=== PATIENT | male | born 1990 | race Caucasian/White ===

== ENCOUNTER 2019-11-19 14:37 | Emergency (ER) | payer SELFPAY ==
--- NOTE | 2019-11-19 15:08 | ER Document Report ---
ED Medical Screen (RME) - General Stated Complaint: PSYCH EVAL Time Seen by Provider: 11/19/19 15:02 Primary Care Provider: EARLE RODRIGUEZ NP [Primary Care Provider] - Follow up as needed Mode of Arrival: Ambulatory Information source: Patient Notes: HPI; 29-year-old male who denies any previous mental health issues or medical problems presents to the emergency complaining of "panic attacks" for the past several weeks. Patient is not willing to elaborate as to what his panic attacks are like. He states he is having auditory hallucinations. States he has been self-medicating with alcohol to try to alleviate the panic attacks and the hallucinations. States he is having thoughts of suicide and plans on taking a gun to shoot himself. He has never tried to harm himself in the past. He denies any homicidal ideation. PE: He is alert and oriented x3. He has a flat affect. Cooperative. Lungs: Clear to auscultation without rales, rhonchi, wheezes. Heart: Tachycardic, without murmurs, rubs, gallops I have greeted and performed a rapid initial assessment of this patient. A comprehensive ED assessment and evaluation of the patient, analysis of test results and completion of the medical decision making process will be conducted by additional ED providers. I have specifically instructed the patient or family members with the patient to immediately return to any nursing staff should anything change in the patient's condition or with their chief complaint. TRAVEL OUTSIDE OF THE [place] IN LAST 30 DAYS: No - Related Data Allergies/Adverse Reactions: No Known Allergies Allergy (Verified 11/19/19 15:01) Past Medical History - Immunizations Hx Diphtheria, Pertussis, Tetanus Vaccination: No Physical Exam - Vital signs Vitals: Temp Pulse Resp BP Pulse Ox 98.7 F 97 20 154/95 H 99 11/19/19 14:56 11/19/19 14:56 11/19/19 14:56 11/19/19 14:56 11/19/19 14:56 Course - Vital Signs Vital signs: Temp Pulse Resp BP Pulse Ox 98.7 F 97 20 154/95 H 99 11/19/19 14:56 11/19/19 14:56 11/19/19 14:56 11/19/19 14:56 11/19/19 14:56 Doctor's Discharge - Discharge Referrals: EARLE RODRIGUEZ [facility]ION[facility] BABYS[facility] [Primary Care Provider] - Follow up as needed
[2019-11-19 16:00] LABS: ABSOLUTE LYMPHOCYTES (AUTO) 1.2 10^3/uL (0.5-4.7); ABSOLUTE MONOCYTES (AUTO) 0.4 10^3/uL (0.1-1.4); ABSOLUTE NEUT (AUTO) 1.4 10^3/uL (1.7-8.2); BASOPHILS % (AUTO) 1.1 % (0-2); EOSINOPHILS % (AUTO) 1.6 % (0-6); HEMATOCRIT 40.8 % (37.9-51.0); HEMOGLOBIN 14.4 g/dL (13.5-17.0); LYMPHOCYTES % (AUTO) 38.6 % (13-45); MEAN CORPUSCULAR HEMOGLOBIN 30.5 pg (27.0-33.4); MEAN CORPUSCULAR HGB CONC 35.2 g/dL (32.0-36.0); MEAN CORPUSCULAR VOLUME 87 fl (80-97); MONOCYTES % (AUTO) 12.4 % (3-13); PLATELET COUNT 207 10^3/uL (150-450); RED BLOOD COUNT 4.71 10^6/uL (4.35-5.55); RED CELL DISTRIBUTION WIDTH 12.1 % (11.5-14.0); SEGMENTED NEUTROPHILS % (AUTO) 46.3 % (42-78); TOTAL CELLS COUNTED % (AUTO) 100 %; WHITE BLOOD COUNT 3.1 10^3/uL (4.0-10.5)
[2019-11-19 16:22] LABS: ACETAMINOPHEN < 10 ug/mL (10-30); ALBUMIN 5.2 g/dL (3.5-5.0); ALCOHOL < 10 mg/dL (NONE DETECTED); ALKALINE PHOSPHATASE 118 U/L (38-126); ANION GAP 17 (5-19); ASPARTATE AMINO TRANSFERASE 37 U/L (17-59); BILIRUBIN,DIRECT 0.3 mg/dL (0.0-0.4); BILIRUBIN,TOTAL 0.8 mg/dL (0.2-1.3); BLOOD UREA NITROGEN 11 mg/dL (7-20); CALCIUM 10.1 mg/dL (8.4-10.2); CARBON DIOXIDE 23 mmol/L (22-30); CHLORIDE 101 mmol/L (98-107); GLUCOSE 112 mg/dL (75-110); POTASSIUM 4.1 mmol/L (3.6-5.0); SALICYLATE < 1.0 mg/dL (2.0-20.0); TOTAL PROTEIN 9.1 g/dL (6.3-8.2)
--- NOTE | 2019-11-19 17:12 | ER Document Report ---
ED General - General Chief Complaint: Psych Problem Stated Complaint: PSYCH EVAL Time Seen by Provider: 11/19/19 15:02 Primary Care Provider: EARLE RODRIGUEZ NP [NURSE PRACTITIONER] - Follow up as needed Mode of Arrival: Ambulatory TRAVEL OUTSIDE OF THE [place] IN LAST 30 DAYS: No - HPI Notes: 29-year-old male presents for psychiatric evaluation. Patient states that he has been stressed out for several weeks, he has not been eating or sleeping. He states that he has nightmares. He feels scared and is in "panic attack mode". He states that about a year ago he had a "bad acid trip" and "things have been different ever since". He denies current use of acid. He states he has been sober from drugs for the past year. He does use alcohol, he has been drinking daily in order to deal with his current emotional state, he states he has not consumed alcohol today. Patient states he has been having auditory and tactile hallucinations. He states for example today he was in the shower and believe that he heard an argument between his mother and fimichael. When he got out of the shower he learned that the argument never happened as his mother was on a completely opposite end of the house from his fianc and both denied the event. He states that he has noticed things feel different, everything he touches feels uncomfortable. He also states that he had plan to shoot himself to deal with what he has been feeling. Denies previous psychiatric history. - Related Data Allergies/Adverse Reactions: No Known Allergies Allergy (Verified 11/19/19 15:01) Past Medical History - General Information source: Patient - Social History Smoking Status: Former Smoker Chew tobacco use (# tins/day): No Frequency of alcohol use: Heavy Lives with: Parents, Spouse/Significant other Family History: None Patient has homicidal ideation: No - Immunizations Hx Diphtheria, Pertussis, Tetanus Vaccination: No Review of Systems - Review of Systems Constitutional: No symptoms reported EENT: No symptoms reported Cardiovascular: No symptoms reported Gastrointestinal: No symptoms reported Genitourinary: No symptoms reported Male Genitourinary: No symptoms reported Musculoskeletal: No symptoms reported Skin: No symptoms reported Neurological/Psychological: See HPI Physical Exam - Vital signs Vitals: Temp Pulse Resp BP Pulse Ox 98.7 F 97 20 154/95 H 99 11/19/19 14:56 11/19/19 14:56 11/19/19 14:56 11/19/19 14:56 11/19/19 14:56 - General General appearance: Alert, Anxious In distress: None - HEENT Head: Normocephalic, Atraumatic Extraocular movements intact: Yes Pupils: PERRL - Respiratory Breath sounds: Normal - Cardiovascular Rhythm: Regular Heart sounds: Normal auscultation Normal capillary refill: Yes - Abdominal Tenderness: Nontender - Extremities General upper extremity: Normal inspection General lower extremity: Normal inspection - Neurological Neuro grossly intact: Yes Cognition: Normal Orientation: AAOx4 - Psychological Associated symptoms: Anxious, Restlessness - Skin Skin Temperature: Warm Course - Re-evaluation Re-evalutation: 29-year-old male here with auditory/tactile hallucinations, panic attack, nightmare. On exam he is alert but anxious appearing, slightly tremulous, vital signs stable. He is not tachycardic and has no facial flushing. Abdomen is soft. Given his a tremor, daily alcohol use and that he has not had any today, will give a dose of Valium now and start CIWA scoring. Concern for acute psychiatric illness, such as first break psychosis versus severe panic/anxiety versus alcohol induced mood disorder. Behavioral health to see. 11/19/19 17:52 Patient has been seen by behavioral health, current plan is to petition patient and to start placement process 11/19/19 18:36 Labs reviewed. Mild lymphopenia. Hemoglobin and platelets within normal limits. Electrolytes within normal limits. Creatinine within normal limits. Urine does not suggest UTI, has trace ketones likely representing his poor p.o. intake. Tox screen and EtOH negative. 11/19/19 18:36 Patient is medically cleared at this time. We will continue ED observation while we await placement process. Continue CIWA. Diet has been ordered. Co ntinue safety precautions. - Vital Signs Vital signs: Temp Pulse Resp BP Pulse Ox 98.7 F 97 20 154/95 H 99 11/19/19 14:56 11/19/19 14:56 11/19/19 14:56 11/19/19 14:56 11/19/19 14:56 - Laboratory Result Diagrams: 11/19/19 15:25 11/19/19 15:06 Laboratory results interpreted by me: 11/19/19 11/19/19 11/19/19 15:06 15:25 15:33 WBC 3.1 L Absolute Neuts (auto) 1.4 L Glucose 112 H Total Protein 9.1 H Albumin 5.2 H Urine Protein 100 H Urine Ketones TRACE H Urine Bilirubin SMALL H Urine Urobilinogen 2.0 H Salicylates < 1.0 L Acetaminophen < 10 L - EKG Interpretation by Me Additional EKG results interpreted by me: EKG is interpreted by me. Normal sinus rhythm, rate 87. Narrow QRS, QTC within normal limits. No acute ST changes. No previous available for comparison. Discharge - Discharge Clinical Impression: Alcohol abuse, Hallucinations, Suicidal ideations Disposition: PSYCH HOSP/UNIT Referrals: EARLE RODRIGUEZ NP [NURSE PRACTITIONER] - Follow up as needed
[2019-11-19 17:25] LABS: APPEARANCE,URINE CLEAR; BILIRUBIN,URINE SMALL (NEGATIVE); COLOR,URINE AMBER; GLUCOSE, URINE NEGATIVE (NEGATIVE); KETONES,URINE TRACE mg/dL (NEGATIVE); LEUKOCYTE ESTERASE,URINE NEGATIVE (NEGATIVE); NITRITE,URINE NEGATIVE (NEGATIVE); PROTEIN,URINE 100 mg/dL (NEGATIVE)
[2019-11-19 17:32] LABS: URINE AMPHETAMINES SCREEN NEGATIVE; URINE BARBITURATES SCREEN NEGATIVE; URINE BENZODIAZEPINES SCREEN NEGATIVE; URINE COCAINE SCREEN NEGATIVE; URINE MARIJUANA (THC) SCREEN NEGATIVE; URINE METHADONE SCREEN NEGATIVE; URINE PHENCYCLIDINE SCREEN NEGATIVE
[2019-11-19] MEDS ORDERED: DIAZEPAM 2 MG TABLET PO ONE ×2 (17:44→23:13)
--- NOTE | 2019-11-19 18:22 | PSYCHOLOGICAL NOTE ---
Psych Note - Psych Note Date seen by psych provider: 11/19/19 Time seen by psych provider: 17:06 Psych Note: Reason for Consult: Suicidal ideation/ hallucinations Clinical presentation: observed Hallucinations; visual and textile reports auditory hallucinations Reports suicidal ideation Substance induced psychosis with abuse Impression/Plan: Patient is recommended for IVC. Patient reports suicidal ideation with visual, auditory and textile hallucinations. He reports a "bad acid trip" about one year ago that has increased his depression. He disclosed not eating and only drinking beer for the last two weeks. He stated he is scared. Patient has visible tremors. He does not make eye contact and has halting conversational speech. Patient is observed starring and picking at his hands and reports he can "feel thing from when I tripped... I can see it. It is a little faint right now (pointing to his forearm) but I can feel it." When asked what color "it" is be takes about a minute to respond then stated "the color is me." Patient is demonstrating impair cognitive processes and is a danger to himself and others. Dr. Díaz was consulted on the care and management of this patient' attending physician is in agreement with recommendations and disposition.
--- NOTE | 2019-11-19 19:55 | EKG REPORT ---
SEVERITY:- NORMAL ECG - SINUS RHYTHM : Confirmed by: Leandro Tariq 19-Nov-2019 19:54:18
--- NOTE | 2019-11-20 16:41 | ER Document Report ---
Doctor's Note Notes: 11/20/19 16:41 Patient reevaluated at this time. He is stable for transport to [place]. He has on IVC papers and will be taken by law enforcement.
[2019-11-20 16:56] VITALS: BP 131/73
== END 2019-11-20 17:02 ==
LOC: ER 14:37
DX: R44.1 Visual hallucinations (principal); R44.2 Other hallucinations; R44.0 Auditory hallucinations; F10.10 Alcohol abuse, uncomplicated; F41.0 Panic disorder [episodic paroxysmal anxiety]; F51.5 Nightmare disorder; R45.851 Suicidal ideations; R25.1 Tremor, unspecified; D72.810 Lymphocytopenia; Z87.891 Personal history of nicotine dependence
CPT/HCPCS: 93005; 99285; 36415; 80307 ×4; 85025; 80053; 81001; 93010; J3490